=== PATIENT | female | born 1955 | race Caucasian/White ===

== ENCOUNTER 2016-06-30 13:08 | Emergency (ER) | payer OTHER ==
--- NOTE | 2016-06-30 14:04 | ED CLINICAL REPORT ---
Clinical Report - Physicians/Mid Levels [facility] [address] [place] [address] 06/30/2016 13:09 Patient: ANSELMO ZUNIGA Time Seen: 13:36; upon arrival, initial patient contact, initial documentation, patient care assumed. Arrived- By private vehicle. Historian- patient and daughter. HISTORY OF PRESENT ILLNESS Chief Complaint: RECTAL PAIN. constipation. This started about 2 weeks ago and is still present. The patient has had rectal pain, constipation and hard stools but not had dark stools or rectal bleeding. No nausea, vomiting, diarrhea or abdominal pain. (had x2 bm today, ate breakfast, oatmeal, peach). No recent travel. No known contact with a sick individual. Similar symptoms previously: Chronically, as bad. Recent medical care: Not recently seen/assessed. REVIEW OF SYSTEMS No complaint of rectal foreign body. She has had no rectal intercourse. All systems otherwise negative, except as recorded above. PAST HISTORY See nurses notes. PROBLEMS: Hypertension. --13:33 Neha Howe RTeodoraN. ADDITIONAL SURGERIES: Small bowel. --13:32 Neha Howe RFracisco. SOCIAL HISTORY Never smoker. No alcohol use or drug use. Not a homosexual. No recent travel. Is a local resident. FAMILY HISTORY Negative. ADDITIONAL NOTES The nursing notes have been reviewed with agreement regarding the chief complaint, HPI, ROS, PMH and patient medications and allergies. PHYSICAL EXAM Vital Signs: 06/30/2016 13:27 BP: 138/64. HR: 58. RR: 16. O2 saturation: 96%. Temp: 98.2 F. Pain level now: 6/10. Have been reviewed as normal and appear to be correct. Appearance: Alert. Oriented X3. No acute distress. Eyes: Pupils equal, round and reactive to light. Eyes normal inspection. Neck: Normal inspection. Neck supple. CVS: Normal heart rate and rhythm. Heart sounds normal. Pulses normal. Respiratory: No respiratory distress. Breath sounds normal. Abdomen: Soft and nontender. Bowel sounds normal. No organomegaly. No mass. Back: Normal inspection. Rectal: Rectal exam normal and nontender. Stool heme negative; hemoccult quality control inspector heading check passed. (POC test reference range: negative). Skin: Skin warm and dry. Normal skin color. No rash. Normal skin turgor. Extremities: Extremities exhibit normal ROM. No lower extremity edema. Neuro: Oriented X 3. No motor deficit. No sensory deficit. PROGRESS AND PROCEDURES Patient counseled in person regarding the patient's stable condition and diagnosis. 14:04. Differential Diagnosis: Other possible considerations: constipation, sbo, hemorrhoid, rectal fissure, impaction. Above considerations are based on history and physical exam. Differential diagnosis was discussed with patient and patient's family. Disposition: Discharged home in good and unchanged condition (14:04). Condition: good and stable. CLINICAL IMPRESSION Constipation (Rectal pain). INSTRUCTIONS Warnings: GENERAL WARNINGS: Return or contact your physician immediately if your condition worsens or changes unexpectedly, if not improving as expected, or if other problems arise. Specifically return if problem worsens. OTC Medications: Colace capsules (available over the counter): take according to label instructions. Follow-up: Follow up with your doctor in about one week as needed. Call for an appointment. Summary of care provided to patient and family. Understanding of the discharge instructions verbalized by patient and family. (Electronically signed by Ayana Fam A.R.N.P. 06/30/2016 16:07)
--- NOTE | 2016-06-30 14:04 | ED CLINICAL REPORT ---
Clinical Report - Physicians/Mid Levels [facility] [address] [place] [address] 06/30/2016 13:09 Patient: ANSELMO ZUNIGA Time Seen: 13:36; upon arrival, initial patient contact, initial documentation, patient care assumed. Arrived- By private vehicle. Historian- patient and daughter. HISTORY OF PRESENT ILLNESS Chief Complaint: RECTAL PAIN. constipation. This started about 2 weeks ago and is still present. The patient has had rectal pain, constipation and hard stools but not had dark stools or rectal bleeding. No nausea, vomiting, diarrhea or abdominal pain. (had x2 bm today, ate breakfast, oatmeal, peach). No recent travel. No known contact with a sick individual. Similar symptoms previously: Chronically, as bad. Recent medical care: Not recently seen/assessed. REVIEW OF SYSTEMS No complaint of rectal foreign body. She has had no rectal intercourse. All systems otherwise negative, except as recorded above. PAST HISTORY See nurses notes. PROBLEMS: Hypertension. --13:33 Neha Howe RTeodoraN. ADDITIONAL SURGERIES: Small bowel. --13:32 Neha Howe RFracisco. SOCIAL HISTORY Never smoker. No alcohol use or drug use. Not a homosexual. No recent travel. Is a local resident. FAMILY HISTORY Negative. ADDITIONAL NOTES The nursing notes have been reviewed with agreement regarding the chief complaint, HPI, ROS, PMH and patient medications and allergies. PHYSICAL EXAM Vital Signs: 06/30/2016 13:27 BP: 138/64. HR: 58. RR: 16. O2 saturation: 96%. Temp: 98.2 F. Pain level now: 6/10. Have been reviewed as normal and appear to be correct. Appearance: Alert. Oriented X3. No acute distress. Eyes: Pupils equal, round and reactive to light. Eyes normal inspection. Neck: Normal inspection. Neck supple. CVS: Normal heart rate and rhythm. Heart sounds normal. Pulses normal. Respiratory: No respiratory distress. Breath sounds normal. Abdomen: Soft and nontender. Bowel sounds normal. No organomegaly. No mass. Back: Normal inspection. Rectal: Rectal exam normal and nontender. Stool heme negative; hemoccult quality assurance engineer check passed. (POC test reference range: negative). Skin: Skin warm and dry. Normal skin color. No rash. Normal skin turgor. Extremities: Extremities exhibit normal ROM. No lower extremity edema. Neuro: Oriented X 3. No motor deficit. No sensory deficit. PROGRESS AND PROCEDURES Patient counseled in person regarding the patient's stable condition and diagnosis. 14:04. Differential Diagnosis: Other possible considerations: constipation, sbo, hemorrhoid, rectal fissure, impaction. Above considerations are based on history and physical exam. Differential diagnosis was discussed with patient and patient's family. Disposition: Discharged home in good and unchanged condition (14:04). Condition: good and stable. CLINICAL IMPRESSION Constipation (Rectal pain). INSTRUCTIONS Warnings: GENERAL WARNINGS: Return or contact your physician immediately if your condition worsens or changes unexpectedly, if not improving as expected, or if other problems arise. Specifically return if problem worsens. OTC Medications: Colace capsules (available over the counter): take according to label instructions. Follow-up: Follow up with your doctor in about one week as needed. Call for an appointment. Summary of care provided to patient and family. Understanding of the discharge instructions verbalized by patient and family. (Electronically signed by Ayana Fam A.R.N.P. 06/30/2016 16:07)
--- NOTE | 2016-06-30 14:04 | ED NURSING NOTES ---
Clinical Report - Nurses [facility] [address] [place] [address] 06/30/2016 13:09 [id number] Triage time 13:26Feb 2016. Acuity: LEVEL 3. Chief Complaint: CONSTIPATION (rectal pain). Alert. No acute distress. --13:38 Neha Howe R.N. 13:27 06/30/16. BP: 138/64. HR: 58. RR: 16. O2 saturation: 96%. Temp: 98.2 F. Pain level now: 6/10. --13:38 Neha Howe R.N. Weight: 69.8 kg stated. Height/Length: 55 inches Per Patient. BMI: 35.8. --13:38 Neha Howe R.N. Medications Lisinopril Oral (Tablet 10 mg) 1 tablet, daily. --13:31 Neha Howe R.N. The following entry was struck and corrected by Neha Howe R.N., 13:33 (06/30/16) Reason for correction - other(correction). <<STRICKEN ENTRY-- Lisinopril Oral. --13:31 Neha Howe R.N. --END STRIKE>>. Allergies No Known Drug Allergy. --13:33 Neha Howe R.N. History Arrived by private vehicle. Historian: patient. Accompanied by family. Onset. (about 2 weeks). Notes pain level as 6/10 on arrival. She has had constipation and abdominal pain. She has had constipation (2 weeks). 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 No nausea, vomiting, diarrhea or fever. Last oral intake by patient was breakfast this morning (AM). Treatment COFFEE SUPERVISOR: None. PAST MEDICAL HX: Immunizations: status is unknown. The patient is post-menopausal. SOCIAL HX: Never smoker. No alcohol use or drug use. FALL RISK ASSESSMENT: Fall risk assessment completed. No fall risk identified. NUTRITIONAL RISK ASSESSMENT: The nutritional risk assessment revealed no deficiencies. FUNCTIONAL ASSESSMENT: Functional assessment: no impairments noted. LEARNING NEEDS ASSESSMENT: The learning needs assessment revealed no barriers. SKIN INTEGRITY ASSESSMENT: Skin integrity risk assessment completed. No skin integrity risk identified. --13:38 Neha Howe R.N. PROBLEMS: Hypertension. --13:33 Neha Howe R.N. ADDITIONAL SURGERIES: Small bowel. --13:32 Neha Howe R.N. Interventions ID band on patient. To room. --13:38 Neha Howe R.N. PHYSICAL ASSESSMENT Ambulatory to room. Patient gowned. GENERAL / NEURO / PSYCH: Alert. Oriented X 4. Appears in no acute distress. RESPIRATORY: Respirations not labored. CVS: Capillary refill less than 2 seconds. GI / : Abdominal tenderness. SKIN: Skin is warm. --13:43 Neah Howe R.N. NURSING PROGRESS NOTES Patient gowned. Head of bed elevated. Film Touch Up Inspector provided for the rectal exam by the physician. Patient identifiers checked. Call light placed in reach. Side rails up x 1. Bed placed in lowest position. Brakes of bed on. --13:40 Neha Howe R.N. DISPOSITION / DISCHARGE 14:15. Condition at departure: unchanged. No learning barriers present. Discharge instructions provided and reviewed with the patient. Reviewed medication(s) side effects, precautions, dosing and course information. Prescription(s) given to the patient. Patient verbalized understanding. Written instructions provided in Turkmen. The patient was discharged home and accompanied by family. She left the Emergency Department ambulatory and via private vehicle. Family member driving. Medication list reviewed and validated. --16:01 Arabella Tse R.N. 13:27 06/30/16. BP: 138/64. HR: 58. RR: 16. O2 saturation: 96%. Temp: 98.2 F. Pain level now: 10/14. --16:01 Arabella Tse R.N. Locked/Released at 06/30/2016 16:02 by Arabella sTe R.N.
--- NOTE | 2016-06-30 14:04 | ED NURSING NOTES ---
Clinical Report - Nurses [facility] [address] [place] [address] 06/30/2016 13:09 [id number] Triage time 13:26Feb 2016. Acuity: LEVEL 3. Chief Complaint: CONSTIPATION (rectal pain). Alert. No acute distress. --13:38 Neha Howe R.N. 13:27 06/30/16. BP: 138/64. HR: 58. RR: 16. O2 saturation: 96%. Temp: 98.2 F. Pain level now: 6/10. --13:38 Neha oHwe R.N. Weight: 69.8 kg stated. Height/Length: 55 inches Per Patient. BMI: 35.8. --13:38 Neha Howe R.N. Medications Lisinopril Oral (Tablet 10 mg) 1 tablet, daily. --13:31 Neha Howe R.N. The following entry was struck and corrected by Neha Howe R.N., 13:33 (06/30/16) Reason for correction - other(correction). <<STRICKEN ENTRY-- Lisinopril Oral. --13:31 Neha Howe R.N. --END STRIKE>>. Allergies No Known Drug Allergy. --13:33 Neha Howe R.N. History Arrived by private vehicle. Historian: patient. Accompanied by family. Onset. (about 2 weeks). Notes pain level as 6/10 on arrival. She has had constipation and abdominal pain. She has had constipation (2 weeks). 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 No nausea, vomiting, diarrhea or fever. Last oral intake by patient was breakfast this morning (AM). 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 PAST MEDICAL HX: Immunizations: status is unknown. The patient is post-menopausal. SOCIAL HX: Never smoker. No alcohol use or drug use. FALL RISK ASSESSMENT: Fall risk assessment completed. No fall risk identified. NUTRITIONAL RISK ASSESSMENT: The nutritional risk assessment revealed no deficiencies. FUNCTIONAL ASSESSMENT: Functional assessment: no impairments noted. LEARNING NEEDS ASSESSMENT: The learning needs assessment revealed no barriers. SKIN INTEGRITY ASSESSMENT: Skin integrity risk assessment completed. No skin integrity risk identified. --13:38 Neha Howe R.N. PROBLEMS: Hypertension. --13:33 Neha Howe R.N. ADDITIONAL SURGERIES: Small bowel. --13:32 Neha Howe R.N. Interventions ID band on patient. To room. --13:38 Neha Howe R.N. PHYSICAL ASSESSMENT Ambulatory to room. Patient gowned. GENERAL / NEURO / PSYCH: Alert. Oriented X 4. Appears in no acute distress. RESPIRATORY: Respirations not labored. CVS: Capillary refill less than 2 seconds. GI / : Abdominal tenderness. SKIN: Skin is warm. --13:43 eNha Howe R.N. NURSING PROGRESS NOTES Patient gowned. Head of bed elevated. Construction Site Crossing Guard provided for the rectal exam by the physician. Patient identifiers checked. Call light placed in reach. Side rails up x 1. Bed placed in lowest position. Brakes of bed on. --13:40 Neha Howe R.N. DISPOSITION / DISCHARGE 14:15. Condition at departure: unchanged. No learning barriers present. Discharge instructions provided and reviewed with the patient. Reviewed medication(s) side effects, precautions, dosing and course information. Prescription(s) given to the patient. Patient verbalized understanding. Written instructions provided in Luxembourgish. The patient was discharged home and accompanied by family. She left the Emergency Department ambulatory and via private vehicle. Family member driving. Medication list reviewed and validated. --16:01 Arabella Tse R.N. 13:27 06/30/16. BP: 138/64. HR: 58. RR: 16. O2 saturation: 96%. Temp: 98.2 F. Pain level now: 10/14. --16:01 Arabella Tse R.N. Locked/Released at 06/30/2016 16:02 by Arabella Tse R.N.
--- NOTE | 2016-06-30 16:07 | ED MED RECONCILIATION SUMMARY ---
Patient: ANSELMO ZUNIGA Medication Reconciliation Report [facility] VisitID: [id number] [address] [place] [address] 61y, F Registration Date/Time: 06/30/2016 Weight: 69.8 kg Height/Length: 55 in. BMI: 35.8 ALLERGIES: No Known Drug Allergy The patient's Home Medications are listed below: THE FOLLOWING MEDICATIONS NEED TO BE RECONCILED: Lisinopril Oral (10 mg) 1 tablet, daily The source(s) of the original Home Medication information: Not obtained. The following Medications were given to the patient in the Emergency Department: None. The following Medications were prescribed to the patient: Colace capsules (available over the counter): take according to label instructions. -- Ayana Fam A.R.N.P.
--- NOTE | 2016-06-30 16:07 | ED DISCHARGE INSTRUCTIONS ---
Patient: ANSELMO ZUNIGA General Instructions [facility] VisitID: [id number] [address] [place] [address] 61y, F Registration Date/Time: 06/30/2016 Constipation (Rectal pain). INSTRUCTIONS Warnings: GENERAL WARNINGS: Return or contact your physician immediately if your condition worsens or changes unexpectedly, if not improving as expected, or if other problems arise. Specifically return if problem worsens. OTC Medications: Colace capsules (available over the counter): take according to label instructions. Follow-up: Follow up with your doctor in about one week as needed. Call for an appointment. Summary of care provided to patient and family. Understanding of the discharge instructions verbalized by patient and family. ADDITIONAL INFORMATION Constipation (Adult) Constipation is bowel movements that are less frequent than usual. Stools often become very hard and difficult to pass. This may lead to abdominal pain and bloating. It may also cause painful bowel movements. Constipation may be due to a diet thats low in fiber. Some medications, especially pain medications, can also cause it. Constipation may be treated with enemas, suppositories, laxatives or stool softeners. Your doctor will advise you which will work best for you. Follow the advice below to help avoid this problem in the future. Home Care Medication: Take any medicines as directed. Some laxatives are safe only for occasional use. Others can be taken on a regular basis. Talk to your doctor or pharmacist if you have questions. General Care: Prescription pain medications can cause constipation. If you are prescribed pain medications, ask the doctor whether you should also take a stool softener. A diet high in fiber with plenty of fluids helps to maintain regular, soft bowel movements. The following foods are good sources of dietary fiber: Cereals and breads: Whole grain cereal with bran, oatmeal, rolled oats, whole grain breads Fruits: All fruits (fresh and dried), raisins, prunes, apricots, berries, figs Vegetables: Any fresh vegetables, especially peas, broccoli, brussels sprouts, winter squash, green beans, cauliflower, solis beans, carrots Other: Popcorn, brown rice Drink plenty of water when you increase the amount of fiber you eat. Follow Up with your doctor or return to this facility if symptoms do not improve in the next few days. You may require further tests or a referral to a specialist. Get Prompt Medical Attention if any of the following occur: Fever over 100.4F (38C) Failure to resume normal bowel movements Increasing abdominal or back pain Nausea or vomiting Abdominal swelling Blood in the stool Weakness, dizziness or fainting Unexpected vaginal bleeding Docusate Sodium Oral tablet What is this medicine? DOCUSATE (doc CUE sayt) is stool softener. It helps prevent constipation and straining or discomfort associated with hard or dry stools. How should I use this medicine? Take this medicine by mouth with a glass of water. Follow the directions on the label. Take your doses at regular intervals. Do not take your medicine more often than directed. Talk to your credit authorizer regarding the use of this medicine in children. While this medicine may be prescribed for children as young as 2 years for selected conditions, precautions do apply. What side effects may I notice from receiving this medicine? Side effects that you should report to your doctor or health assisted living care manager as soon as possible: allergic reactions like skin rash, itching or hives, swelling of the face, lips, or tongue Side effects that usually do not require medical attention (report to your doctor or health assisted living care manager if they continue or are bothersome): diarrhea stomach cramps throat irritation What may interact with this medicine? mineral oil What if I miss a dose? If you miss a dose, take it as soon as you can. If it is almost time for your next dose, take only that dose. Do not take double or extra doses. Where should I keep my medicine? Keep out of the reach of children. Store at room temperature between 15 and 30 degrees C (59 and 86 degrees F). Throw away any unused medicine after the expiration date. What should I tell my health care provider before I take this medicine? They need to know if you have any of these conditions: nausea or vomiting severe constipation stomach pain sudden change in bowel habit lasting more than 2 weeks an unusual or allergic reaction to docusate, other medicines, foods, dyes, or preservatives or trying to get breast-feeding What should I watch for while using this medicine? Do not use for more than one week without advice from your doctor or health assisted living care manager. If your constipation returns, check with your doctor or health assisted living care manager. Drink plenty of water while taking this medicine. Drinking water helps decrease constipation. Stop using this medicine and contact your doctor or health assisted living care manager if you experience any rectal bleeding or do not have a bowel movement after use. These could be signs of a more serious condition. You have been given the following additional information: Constipation (Adult) Docusate Sodium Oral tablet (Electronically signed by Ayana Fam A.R.N.P. 06/30/2016 16:07)
--- NOTE | 2016-06-30 16:07 | ED MAR SUMMARY ---
..... Medication Administration Record [facility] [address] [place], [place] [id number] Patient: FRANC BOLTONDOMINIKGodwin English Visit ID: [id number] 61y, F Weight: 69.8 kg Height/Length: 55 in BMI: 35.8 ALLERGIES: No Known Drug Allergy
--- NOTE | 2016-06-30 16:07 | ED MED RECONCILIATION SUMMARY ---
Patient: ANSELMO ZUNIGA Medication Reconciliation Report [facility] VisitID: [id number] [address] [place] [address] 61y, F Registration Date/Time: 06/30/2016 Weight: 69.8 kg Height/Length: 55 in. BMI: 35.8 ALLERGIES: No Known Drug Allergy The patient's Home Medications are listed below: THE FOLLOWING MEDICATIONS NEED TO BE RECONCILED: Lisinopril Oral (10 mg) 1 tablet, daily The source(s) of the original Home Medication information: Not obtained. The following Medications were given to the patient in the Emergency Department: None. The following Medications were prescribed to the patient: Colace capsules (available over the counter): take according to label instructions. -- Ayana Fam A.R.N.P.
--- NOTE | 2016-06-30 16:07 | ED MAR SUMMARY ---
..... Medication Administration Record [facility] [address] [place], [place] [id number] Patient: FRANC BOLTONDOMINIKGodwin English Visit ID: [id number] 61y, F Weight: 69.8 kg Height/Length: 55 in BMI: 35.8 ALLERGIES: No Known Drug Allergy
--- NOTE | 2016-06-30 16:07 | ED DISCHARGE INSTRUCTIONS ---
Patient: ANSELMO ZUNIGA General Instructions [facility] VisitID: [id number] [address] [place] [address] 61y, F Registration Date/Time: 06/30/2016 Constipation (Rectal pain). INSTRUCTIONS Warnings: GENERAL WARNINGS: Return or contact your physician immediately if your condition worsens or changes unexpectedly, if not improving as expected, or if other problems arise. Specifically return if problem worsens. OTC Medications: Colace capsules (available over the counter): take according to label instructions. Follow-up: Follow up with your doctor in about one week as needed. Call for an appointment. Summary of care provided to patient and family. Understanding of the discharge instructions verbalized by patient and family. ADDITIONAL INFORMATION Constipation (Adult) Constipation is bowel movements that are less frequent than usual. Stools often become very hard and difficult to pass. This may lead to abdominal pain and bloating. It may also cause painful bowel movements. Constipation may be due to a diet thats low in fiber. Some medications, especially pain medications, can also cause it. Constipation may be treated with enemas, suppositories, laxatives or stool softeners. Your doctor will advise you which will work best for you. Follow the advice below to help avoid this problem in the future. Home Care Medication: Take any medicines as directed. Some laxatives are safe only for occasional use. Others can be taken on a regular basis. Talk to your doctor or pharmacist if you have questions. General Care: Prescription pain medications can cause constipation. If you are prescribed pain medications, ask the doctor whether you should also take a stool softener. A diet high in fiber with plenty of fluids helps to maintain regular, soft bowel movements. The following foods are good sources of dietary fiber: Cereals and breads: Whole grain cereal with bran, oatmeal, rolled oats, whole grain breads Fruits: All fruits (fresh and dried), raisins, prunes, apricots, berries, figs Vegetables: Any fresh vegetables, especially peas, broccoli, brussels sprouts, winter squash, green beans, cauliflower, solis beans, carrots Other: Popcorn, brown rice Drink plenty of water when you increase the amount of fiber you eat. Follow Up with your doctor or return to this facility if symptoms do not improve in the next few days. You may require further tests or a referral to a specialist. Get Prompt Medical Attention if any of the following occur: Fever over 100.4F (38C) Failure to resume normal bowel movements Increasing abdominal or back pain Nausea or vomiting Abdominal swelling Blood in the stool Weakness, dizziness or fainting Unexpected vaginal bleeding Docusate Sodium Oral tablet What is this medicine? DOCUSATE (doc CUE sayt) is stool softener. It helps prevent constipation and straining or discomfort associated with hard or dry stools. How should I use this medicine? Take this medicine by mouth with a glass of water. Follow the directions on the label. Take your doses at regular intervals. Do not take your medicine more often than directed. Talk to your side hemmer regarding the use of this medicine in children. While this medicine may be prescribed for children as young as 2 years for selected conditions, precautions do apply. What side effects may I notice from receiving this medicine? Side effects that you should report to your doctor or health care transition mgr as soon as possible: allergic reactions like skin rash, itching or hives, swelling of the face, lips, or tongue Side effects that usually do not require medical attention (report to your doctor or health care transition mgr if they continue or are bothersome): diarrhea stomach cramps throat irritation What may interact with this medicine? mineral oil What if I miss a dose? If you miss a dose, take it as soon as you can. If it is almost time for your next dose, take only that dose. Do not take double or extra doses. Where should I keep my medicine? Keep out of the reach of children. Store at room temperature between 15 and 30 degrees C (59 and 86 degrees F). Throw away any unused medicine after the expiration date. What should I tell my health care provider before I take this medicine? They need to know if you have any of these conditions: nausea or vomiting severe constipation stomach pain sudden change in bowel habit lasting more than 2 weeks an unusual or allergic reaction to docusate, other medicines, foods, dyes, or preservatives or trying to get breast-feeding What should I watch for while using this medicine? Do not use for more than one week without advice from your doctor or health care transition mgr. If your constipation returns, check with your doctor or health care transition mgr. Drink plenty of water while taking this medicine. Drinking water helps decrease constipation. Stop using this medicine and contact your doctor or health care transition mgr if you experience any rectal bleeding or do not have a bowel movement after use. These could be signs of a more serious condition. You have been given the following additional information: Constipation (Adult) Docusate Sodium Oral tablet (Electronically signed by Ayana Fam A.R.N.P. 06/30/2016 16:07)
== END 2016-06-30 14:15 | disposition home or self-care (01) ==
LOC: ED SRH 13:08
DX: K59.00 Constipation, unspecified (principal); K62.89 Other specified diseases of anus and rectum; I10 Essential (primary) hypertension